=== PATIENT | female | born 1975 | race Caucasian/White ===

== ENCOUNTER 2019-02-19 21:15 | Emergency (ER) | payer BC ==
[2019-02-19] MEDS ORDERED: Sodium Chloride 0.9% 10 ML Syringe FLUSH PRN (21:33)
[2019-02-19] MEDS ORDERED: LORazepam 2 MG/ML SDV IVPUSH ONE (21:33)
[2019-02-19] MEDS ORDERED: methylPREDNISolone Sodium Succinate 125 MG/2 ML SDV IVPUSH ONE (21:33)
[2019-02-19] MEDS ORDERED: diphenhydrAMINE 50 MG/ML SDV IVPUSH ONE (21:33)
[2019-02-19] MEDS ORDERED: Sodium Chloride 0.9% 1,000 ML IV SCH (21:45)
[2019-02-19] MEDS ORDERED: Ketorolac 30 MG/ML SDV IVPUSH SCH (22:45)
--- NOTE | 2019-02-19 23:32 | EDM.PDOC ---
ED HPI GENERAL MEDICAL PROBLEM - General Chief Complaint: Chest Pain Stated Complaint: chest pain Time Seen by Provider: 02/19/19 21:28 Source of Information: Reports: Patient, Family (Spouse, patient does not speak good [place]ic, is interpreting), RN Notes Reviewed - History of Present Illness INITIAL COMMENTS - FREE TEXT/NARRATIVE: 43-year-old lady presents with anterior chest discomfort, shortness of breath. This just started this evening about an hour ago. Just taken medication for dental pain, clindamycin and also apparently sumatriptan at about that same time. There's been no rash or hives. She feels like there is "swelling of her throat and feels short of breath with anterior chest discomfort. Patient presents extremely anxious, hyperventilating. Chest Pain Score (Numeric/FACES): 10 - Related Data Allergies Allergy/AdvReac Type Severity Reaction Status Date / Time Penicillins Allergy Cannot Verified 02/19/19 21:27 Remember Social & Family History - Tobacco Use Smoking Status *Q: Current Status Unknown ED ROS GENERAL - Review of Systems Review Of Systems: See Below Constitutional: Denies: Fever, Chills, Diaphoresis HEENT: Reports: Throat Swelling (Possible). Denies: Throat Pain Respiratory: Reports: Shortness of Breath, Pleuritic Chest Pain. Denies: Wheezing, Cough Cardiovascular: Reports: Chest Pain GI/Abdominal: Reports: Nausea. Denies: Abdominal Pain (Worse with deep breathing), Diarrhea, Vomiting Musculoskeletal: Denies: Shoulder Pain, Arm Pain Skin: Denies: Rash Neurological: Reports: Dizziness (No rash or hives), Numbness (Been some numbness of her face) ED EXAM, GENERAL - Physical Exam Exam: See Below General Appearance: Alert, Anxious, Moderate Distress, Other (I per ventilating on arrival to ED) Eye Exam: Bilateral Eye: PERRL Throat/Mouth: Normal Inspection, Other (No swelling of the face mouth or throat) Head: No: Facial Swelling Neck: Supple, Full Range of Motion Respiratory/Chest: Respiratory Distress (Tachypnea), Other (There is tenderness of the sternal border bilaterally more so on the right). No: Rhonchi, Wheezing , Accessory Muscle Use Cardiovascular: Regular Rate, Rhythm, Tachycardia GI/Abdominal: Non-Tender Extremities: Normal Inspection. No: No Pedal Edema, Leg Pain, Increased Warmth , Redness Neurological: Alert, Oriented, No Motor/Sensory Deficits Skin Exam: Warm, Dry, Normal Color Course - Vital Signs Text/Narrative:: And Solu-Medrol IV. Also given Ativan 0.5 mg IV 2 for a total of 1 mg. With that she has stopped hyperventilating and is resting more comfortably but still having anterior chest discomfort. Further evaluation she does have tenderness along her sternum both sides more so on the right. We then did give Toradol IV. Chest x-ray was normal, discharge instructions as documented. Last Recorded V/S: Last Vital Signs Temp 96.2 F 02/19/19 21:21 Pulse 85 02/19/19 21:21 Resp 18 02/19/19 21:21 BP 112/83 02/19/19 21:21 Pulse Ox 100 02/19/19 21:21 - Orders/Labs/Meds Orders: Active Orders 24 hr Category Date Time Status Peripheral IV Care [RC] . DIRECTED Care 02/19/19 21:34 Active Chest 1V Frontal [CR] Stat Exams 02/19/19 21:35 Taken Peripheral IV Insertion Adult [OM.PC] Stat Oth 02/19/19 21:33 Ordered Labs: Laboratory Tests 02/19/19 02/19/19 02/19/19 Range/Units 21:25 21:25 21:25 WBC 10.17 H (3.98-10.04) K/mm3 RBC 4.53 (3.98-5.22) M/mm3 Hgb 12.6 D (11.2-15.7) gm/L Hct 38.6 (34.1-44.9) % MCV 85.2 (79.4-94.8) fl MCH 27.8 (25.6-32.2) pg MCHC 32.6 (32.2-35.5) g/dl RDW Std Deviation 39.2 (36.4-46.3) fL Plt Count 306 (182-369) K/mm3 MPV 11.4 (9.4-12.3) fl Neut % (Auto) 46.3 (34.0-71.1) % Lymph % (Auto) 42.1 (19.3-51.7) % Cameron % (Auto) 8.3 (4.7-12.5) % Eos % (Auto) 2.5 (0.7-5.8) Baso % (Auto) 0.6 (0.1-1.2) % Neut # (Auto) 4.72 (1.56-6.13) K/mm3 Lymph # (Auto) 4.28 H (1.18-3.74) K/mm3 Cameron # (Auto) 0.84 H (0.24-0.36) K/mm3 Eos # (Auto) 0.25 (0.04-0.36) K/mm3 Baso # (Auto) 0.06 (0.01-0.08) K/mm3 Sodium 139 (136-145) mEq/L Potassium 4.1 (3.5-5.1) mEq/L Chloride 105 (98-107) mEq/L Carbon Dioxide 23 (21-32) mEq/L Anion Gap 15.1 H (5-15) BUN 15 (7-18) mg/dL Creatinine 0.8 (0.55-1.02) mg/dL Est Cr Clr Drug Dosing 92.41 mL/min Estimated GFR (MDRD) > 60 (>60) mL/min BUN/Creatinine Ratio 18.8 H (14-18) Glucose 102 (74-106) mg/dL Calcium 9.1 (8.5-10.1) mg/dL Total Bilirubin 0.4 (0.2-1.0) mg/dL AST 21 (15-37) U/L ALT 25 (14-59) U/L Alkaline Phosphatase 63 (46-116) U/L Troponin I < 0.017 (0.00-0.056) ng/mL Total Protein 7.9 (6.4-8.2) g/dl Albumin 3.8 (3.4-5.0) g/dl Globulin 4.1 gm/dL Albumin/Globulin Ratio 0.9 L (1-2) Meds: Medications Discontinued Medications Generic Name Dose Route Start Last Admin Trade Name Freq PRN Reason Stop Dose Admin Diphenhydramine HCl 25 mg 02/19/19 21:33 02/19/19 21:48 Benadryl IVPUSH 02/19/19 21:34 25 mg ONETIME ONE Administration Sodium Chloride 1,000 mls @ 999 mls/hr 02/19/19 21:45 02/19/19 21:51 Normal Saline IV 999 mls/hr ONETIME YAHAIRA Administration Ketorolac Tromethamine 30 mg 02/19/19 22:45 02/19/19 23:25 Toradol IVPUSH 30 mg ONETIME YAHAIRA Administration Lorazepam 1 mg 02/19/19 21:33 02/19/19 21:52 Ativan IVPUSH 02/19/19 21:34 1 mg ONETIME ONE Administration Methylprednisolone Sodium Succinate 125 mg 02/19/19 21:33 02/19/19 21:43 Solu-Medrol IVPUSH 02/19/19 21:34 125 mg ONETIME ONE Administration Sodium Chloride 10 ml 02/19/19 21:33 02/19/19 21:51 Saline Flush FLUSH 10 ml ASDIRECTED PRN Administration Keep Vein Open Departure - Departure Time of Disposition: 23:29 Disposition: Home, Self-Care 01 Condition: Fair Clinical Impression: Chest wall pain, Panic attack Instructions: Panic Attack, [id number], Chest Wall Pain, [id number] Referrals: PCP,None [Primary Care Provider] - Forms: ED Department Discharge Additional Instructions: Rest, avoid heavy lifting, heat across area of discomfort anterior chest 3-4 times daily as needed, you may also start Tylenol tomorrow and take that 3 times daily, Advil or ibuprofen 600 mg twice daily in between doses of Tylenol will give further pain relief. Follow-up clinic if not much better within 2-3 days as expected, return to ED as needed if symptoms worsening in any way. - My Orders Last 24 Hours: My Active Orders 02/19/19 21:33 Peripheral IV Insertion Adult [OM.PC] Stat 02/19/19 21:34 Peripheral IV Care [RC] . DIRECTED 02/19/19 21:35 Chest 1V Frontal [CR] Stat - Assessment/Plan Last 24 Hours: My Active Orders 02/19/19 21:33 Peripheral IV Insertion Adult [OM.PC] Stat 02/19/19 21:34 Peripheral IV Care [RC] . DIRECTED 02/19/19 21:35 Chest 1V Frontal [CR] Stat
--- NOTE | 2019-02-20 06:53 | CR ---
Chest: Frontal view of the chest was obtained. Comparison: Prior chest x-ray of 02/23/16. Slight scoliosis is seen within the spine. Heart size and mediastinum are normal. Lungs are clear. Impression: 1. Nothing acute is seen on frontal chest x-ray. Diagnostic code #1
== END 2019-02-19 23:44 | disposition home or self-care (01) ==
LOC: JD.ED 21:15
DX: F41.0 Panic disorder [episodic paroxysmal anxiety] (principal); Z88.0 Allergy status to penicillin
CPT/HCPCS: 36415; 71045; 80053; 84484; 85025; 96361; 96374; 96375; 99285; J1200; J1885; J2060; J2930; J7040; 93010; 99284